=== PATIENT | female | born 1990 | race Caucasian/White ===

== ENCOUNTER 2018-03-19 23:20 | Outpatient (CLI) | payer BC, MEDICAID ==
[~2018-03-19] VITALS: Ht 160 cm; Wt 59.1 kg
[2018-03-19 23:46] VITALS: BP 118/77; PULSE 57; RESP 18; Ht 160 cm; Wt 59.1 kg
--- NOTE | 2018-03-20 08:08 | PN ---
Triage Information Date/Time March 19, 2018 Late entry note Reason for visit: DFM Weeks of Gestation 37 weeks and 2 days /Para 2 para 1 Diabetes: none Hypertention: none Additional information 28-year-old with IUP at 37 weeks and 2 days was sent from the clinic today for rule out PIH and due to decreased movement and for MICHAEL check. Patient apparently had a headache and blurred vision. Her symptoms resolved on admission. She was kept for monitoring and observation with serial blood pressure check, pH panel and for testing to rule out for PIH as well as for decreased movement. He denies leaking of fluid, vaginal bleeding, epigastric pain or right upper quadrant pain. Objective Vital Signs Date Temp Pulse Resp B/P (MAP) Pulse Ox O2 O2 Flow FiO2 Time Delivery Rate 03/19/18 98.4 57 18 118/77 Room Air 23:46 (91) Heart Rate: 130's Heart Rate Comments Category 1 and reassuring Contractions: None Exam Appearance: Alert and oriented x4 does not appear to be in any acute distress Abdomen: Soft, gravid, fundal height consider gestational age NST: Category 1 MICHAEL: Within normal limits Estimated weight: 42% are within normal limits Results/Medications Result Diagram: 03/20/18 0008 03/20/18 0008 Results 24 hrs Laboratory Tests Test 03/19/18 23:40 03/20/18 00:08 Urine Color YELLOW Urine Clarity SLIGHTLY CLOUDY A Urine pH 6.0 Urine Specific [place] 1.006 Urine Ketones NEGATIVE Urine Nitrite NEGATIVE Urine Bilirubin NEGATIVE Urine Urobilinogen NEGATIVE Urine Leukocyte Esterase 2+ H Urine Microscopic RBC 1 Urine Microscopic WBC 2 Urine Squamous Epithelial Cells FEW Urine Bacteria FEW A Urine Hemoglobin NEGATIVE Urine Glucose NEGATIVE Urine Total Protein NEGATIVE White Blood Count 5.5 Red Blood Count 3.98 L Hemoglobin 12.3 Hematocrit 36.6 L Mean Corpuscular Volume 92.0 Mean Corpuscular Hemoglobin 30.9 Mean Corpuscular Hemoglobin Concent 33.6 Red Cell Distribution Width 12.2 Platelet Count 168 Mean Platelet Volume 10.7 H Immature Granulocytes % 0.400 Neutrophils % 62.8 Lymphocytes % 28.8 Monocytes % 6.3 Eosinophils % 1.3 Basophils % 0.4 Nucleated Red Blood Cells % 0.0 Immature Granulocytes # 0.020 Neutrophils # 3.5 Lymphocytes # 1.6 Monocytes # 0.4 Eosinophils # 0.1 Basophils # 0.0 Nucleated Red Blood Cells # 0.0 Prothrombin Time 11.9 Prothrombin Time Ratio 0.9 INR International Normalized Ratio 0.87 Activated Partial Thromboplast Time 28.1 Fibrinogen 501.0 H Plasma Fibrin Degradation Products <10 Sodium Level 136 Potassium Level 3.5 Chloride Level 107 Carbon Dioxide Level 21 Anion Gap 8 Blood Urea Nitrogen 9 Creatinine 0.49 Est Glomerular Filtrat Rate mL/min > 60 Glucose Level 80 Uric Acid 5.3 Calcium Level 8.7 Total Bilirubin 0.1 L Direct Bilirubin 0.00 Indirect Bilirubin 0.1 Aspartate Amino Transf (AST/SGOT) 31 Alanine Aminotransferase (ALT/SGPT) 27 Alkaline Phosphatase 284 H Total Protein 6.2 Albumin 3.2 L Globulin 3.00 Albumin/Globulin Ratio 1.06 Imaging Results PROCEDURE: US OB CLINICAL INDICATION: Hypertension. Estimated weight. TECHNIQUE: Multiple transabdominal sonographic images of the pelvis and gravid uterus were obtained. The images were reviewed on a PACS workstation. COMPARISON: US PELVIS 03/19/2018 FINDINGS: Cervix: Not visualized Gestation: Single viable intrauterine gestation. Cardiac activity: 134 beats per minute. Presentation: Cephalic Placenta: Location: Posterior Appearance: No previa or abruption. Amniotic Fluid: Not evaluated (assessed with recent biophysical profile) Measurements: BPD = 9.04 cm, 36 weeks 4 days HC = 32.29 cm, 36 weeks 3 days AC = 43.13 cm, 37 weeks 0 days FL = 7.07 cm, 36 weeks 2 days Gestational Age: AUA estimated gestational age: 36 weeks 4 days LMP estimated gestational age: 37 weeks 2 days AUA estimated date of delivery: 04/13/2018 The EFW = 3016 g +/- 452 g (6 lb 10 oz +/- 1 lb 0 oz), 42.7 %ile based on Hadlock criteria. Structures: Not evaluated IMPRESSION: 1. Single viable intrauterine gestation of 36 weeks 4 days by ultrasound crite sonia. 2. Estimated date of delivery of 12/11/2018. 3. Estimated weight = 3016 g +/- 452 g (6 lb 10 oz +/- 1 lb 0 oz), 42.7 %ile based on Hadlock criteria. RPTAT: [facility] Physician Jon Date Time Electronically viewed and signed by Physician Jon on 03/20/2018 02:07 RF/ CC: GEORGE LOVE MD [id number] PROCEDURE: Biophysical profile. CLINICAL INDICATION: Pelvic pain. TECHNIQUE: Multiple sonographic images of the pelvis were obtained with transabdominal technique. COMPARISON: No prior studies are available for comparison. FINDINGS: There is a single living intrauterine gestation with the fetus in a vertex po sition. The placenta is posterior in location, grade II. heart tones of 130 beats per minute are identified. There is normal amniotic fluid volume with an MICHAEL of 14.3 cm. breathing movements = 2 Gross body movements = 2 tone = 2 Qualitative AFV = 2 IMPRESSION: Biophysical profile 8 out of 8. Disposition: Discharge Assessment/Plan IUP at 37 weeks and 2 days Decreased movement, testing reassuring Suspected PIH. Blood pressures during monitoring in triage and observation all within normal limits. Patient denied any symptoms. PIH panels are negative and within normal limits. Estimated weight normal, no evidence of oligohydramnios Patient was asymptomatic when arrived to the triage and during observation and monitoring. She was discharged home in stable condition with a strict labor precautions, kick count, preeclampsia precaution and follow-up within 24 hours with her OB office for nurse visit for monitoring and taking her blood pressure. Patient verbalized understanding. Signs and symptoms of PIH discussed with patient. All questions were answered to patient's best satisfaction. Patient verbalized understanding and agreed to comply with instruction. Risk of PIH and preeclampsia including but not limited to maternal morbidity and mortality discussed with patient. Patient verbalized understanding. GEORGE LOVE MD Mar 20, 2018 08:06
== END 2018-03-20 02:45 | disposition home or self-care (01) ==
LOC: OBT 23:20 → L-D 23:20 → OBT 03-20 02:45
PROVIDERS: ATTEND Specialist
DX: O36.8130 Decreased fetal movements, third trimester, not applicable or unspecified (principal); Z3A.37 37 weeks gestation of pregnancy
CPT/HCPCS: 76815; 76818; 80053; 81001; 84560; 85025; 85362; 85384; 85610; 85730; Z7500; G0463

== ENCOUNTER 2018-03-26 06:38 | Inpatient (IN) | payer MEDICAID ==
[~2018-03-26] VITALS: Ht 157.5 cm; Wt 58.3 kg
[2018-03-26] VITALS (10 sets, daily range): BP systolic 110–163; BP diastolic 67–97; PULSE 47–87; RESP 18–21; Ht 157.5 cm; Wt 58.3 kg
--- NOTE | 2018-03-26 07:13 | TRIAGE ---
OB Triage Datetime Report Generated by CPN: 03/26/2018 07:12 Datetime: 03/26/2018 06:55 Vaginal Exam Dilatation (cms): 1.0 Effacement (%): 90 Station: -2 Exam By: OBED Datetime: 03/26/2018 06:50 Assessment Type: Triage Time of Arrival: 03/26/2018 06:40 EGA: 38.1 Arrived By: Wheelchair Arrived From: Home Chief Complaint: SROM AT 0500 CONTRACTIONS SINCE 529 Movement: Present Contractions: Irregular Rupture of Membranes: Ruptured Vaginal Bleeding: None Vaginal Discharge: Present Recent Sexual Intercouse: Denies Patient Complaints: None Additional Patient Complaints: WANTS , CLINIC CONSENT ALREADY SIGNED Time Provider Notified: 03/26/2018 07:02 Provider Notified: DELSHAD Initial Plan: EFM, VE , NITRIZINE Maternal Assessment Level of Consciousness: Fully Conscious DTR's/Clonus: DTRs 2+; No Clonus Headache: Denies Blurred Vision: No Respiratory Effort: Unlabored; Regular Rhythm; Equal Expansion Breath Sounds, Left: Clear and Equal Breath Sounds, Right: Clear and Equal Nausea/Vomiting: Denies RUQ Epigastric Pain: Denies Lower Extremities Edema: None Upper Extremities Edema: None Facial Edema: None Fall Risk Assessment History of Falling: (0) No Secondary Diagnosis: (0) No Ambulatory Aid: (0) Bedrest/Nurse Assist IV Therapy: (0) No Gait: (0) Normal/Bedrest/Immobile Mental Status: (0) Oriented to Own Ability Fall Score: 0 Fall Risk Score Definition: No Risk: No action required Datetime: 03/20/2018 02:00 Stage of : OB Triage Labor Evaluation Frequency: OCCASIONAL Monitor Mode: External Duration (sec)2399: 50-90 Quality: Mild Resting Tone Mingo: Relaxed Contraction Comments: PT DENIES FEELING UC'S Heart Rate FHR Baseline Rate: 125 Monitor Mode: External US Variability: Moderate 6-25 bpm Accelerations: 15X15 Decelerations: None Pain Assessment Pain Scale: 0 Pain Presence: None/Denies Pain Type: N/A Pain Goal: 3 Datetime: 03/20/2018 01:00 Stage of : OB Triage Labor Evaluation Frequency: OCCASIONAL Monitor Mode: External Duration (sec)2399: 50-90 Quality: Mild Resting Tone Mingo: Relaxed Contraction Comments: PT DENIES FEELING UC'S Heart Rate FHR Baseline Rate: 125 Monitor Mode: External US Variability: Moderate 6-25 bpm Accelerations: 15X15 Decelerations: None Category: Category I Pain Assessment Pain Scale: 0 Pain Presence: None/Denies Pain Type: N/A Pain Goal: 3 Datetime: 03/20/2018 00:07 Stage of : OB Triage Assessment Type: Triage EGA: 37.1 Maternal Assessment Level of Consciousness: Fully Conscious DTR's/Clonus: DTRs 2+; No Clonus Headache: Denies Blurred Vision: No Respiratory Effort: Unlabored; Regular Rhythm; Equal Expansion Breath Sounds, Left: Clear and Equal Breath Sounds, Right: Clear and Equal Nausea/Vomiting: Denies RUQ Epigastric Pain: Denies Lower Extremities Edema: None Degree: None Upper Extremities Edema: None Degree: None Facial Edema: None Temperature Route: Oral Fall Risk Assessment History of Falling: (0) No Secondary Diagnosis: (0) No Ambulatory Aid: (0) Bedrest/Nurse Assist IV Therapy: (0) No Gait: (0) Normal/Bedrest/Immobile Mental Status: (0) Oriented to Own Ability Fall Score: 0 Fall Risk Score Definition: No Risk: No action required Pain Assessment Pain Scale: 0 Pain Presence: None/Denies Pain Type: N/A Datetime: 03/20/2018 00:05 Time of Arrival: 03/19/2018 23:14 Arrived By: Wheelchair Arrived From: Emergency Dept Chief Complaint: PT SENT FROM CLINIC STATING ELEVATED BP, LOW MICHAEL, AND DFM Movement: Present Contractions: Denies/Absent Rupture of Membranes: Denies Vaginal Bleeding: None Vaginal Discharge: Denies Recent Sexual Intercouse: Denies Abdominal Trauma: Not Applicable Patient Complaints: Other Initial Plan: EFM Datetime: 03/19/2018 23:40 Contraction Comments: TOCO APPLIED Comments: US APPLIED
[2018-03-26] MEDS ORDERED: METHYLERGONOVINE 0.2 MG INJ IM PRN ×2 (07:30→11:30)
[2018-03-26] MEDS ORDERED: MINERAL OIL LIGHT 10 ML VIAL TOP ONE (07:30)
[2018-03-26] MEDS ORDERED: LIDOCAINE 1% (MPF) 30 ML INJ INJ PRN (07:30)
[2018-03-26] MEDS ORDERED: OXYTOCIN 30 UNITS/LR 500 ML IV SCH ×3 (07:30→11:18)
[2018-03-26] MEDS ORDERED: MISOPROSTOL 200 MCG TAB PR PRN ×2 (07:30→11:30)
[2018-03-26] MEDS ORDERED: CARBOPROST 250 MCG INJ IM PRN ×2 (07:30→11:30)
[2018-03-26] MEDS ORDERED: BUTORPHANOL 2 MG INJ IV PRN (07:30)
[2018-03-26] MEDS ORDERED: OXYTOCIN 30 UNITS/LR 500 ML IV PRN ×2 (07:30→11:30)
[2018-03-26] MEDS: LACTATED RINGER'S 1,000 ML IV SCH ×3 (08:40→15:45)
[2018-03-26] MEDS ORDERED: CEFAZOLIN 2 GM/50 ML (PMX) 50 ML IVPB ONE ×2 (09:07→09:30)
--- NOTE | 2018-03-26 09:08 | PREAC ---
Date/Time of Note Date/Time of Note DATE: 03/26/18 TIME: 09:06 Anesthesia Eval and Record Evaluation Time Pre-Procedure Interview DATE: 03/26/18 TIME: 09:06 Age 28 Sex female NPO: 8 hrs Preoperative diagnosis in labor with nonreassuring heart rate Planned procedure Repeat C/S Past Medical History Past Medical History: None Surgery & Anesthesia Issues No known issue Meds Anticoagulation: No Beta Vitor within 24 hr: No Reason Beta Vitor not given: Pt. not on B-Vitor No Active Prescriptions or Reported Meds Current Medications Lactated Ringer's 1,000 ml @ 125 mls/hr Q8H IV Last administered on 03/26/18at 09:00; Admin Dose 125 MLS/HR; Start 03/26/18 at 07:03 Butorphanol Tartrate (Stadol) 2 mg Q2H PRN IV PAIN; Start 03/26/18 at 07:30 Lidocaine (Xylocaine 1% (Mpf)) 30 ml ONCE PRN INJ DELIVERY; Start 03/26/18 at 07:30 Oxytocin/Lactated Ringer's 500 ml @ 500 mls/hr ONCE POST IV ; Start 03/26/18 at 07:30 Oxytocin/Lactated Ringer's 500 ml @ 125 mls/hr POST IV ; Start 03/26/18 at 07:30 Oxytocin/Lactated Ringer's 500 ml @ 0 mls/hr ONCE PRN IV BLEEDING; Start 03/26/18 at 07:30 Methylergonovine Maleate (Methergine) 0.2 mg ONCE PRN IM BLEEDING; Start 03/26/18 at 07:30 Carboprost Tromethamine (Hemabate) 250 mcg ONCE PRN IM BLEEDING; Start 03/26/18 at 07:30 Misoprostol (Cytotec) 1,000 mcg ONCE PRN NM BLEEDING; Start 03/26/18 at 07:30 Cefazolin Sodium/ Dextrose 50 ml @ 100 mls/hr ONCE ONCE IVPB ; Start 03/26/18 at 09:30; Stop 03/26/18 at 09:59; Status UNV Meds reviewed: Yes Allergies Coded Allergies: No Known Drug Allergy (Verified Allergy, Unknown, 03/26/18) Allergies Reviewed: Yes Labs/Studies Labs Reviewed: Reviewed by anesthesiologist Result Diagram: 03/26/18 0750 Laboratory Tests 03/26/18 07:50 Blood Bank Test 03/26/18 07:50 Antibody Screen NEGATIVE Blood Type O POSITIVE Rh Immune Globulin Candidate NO test: Positive Pre-procedure Exam Last vitals Vital Signs Date Temp Pulse Resp B/P (MAP) Pulse Ox O2 O2 Flow FiO2 Time Delivery Rate 03/26/18 97.6 47 18 150/97 Room Air 06:53 (114) Airway: Adequate mouth opening Mallampati: Mallampati II Teeth: Normal Lung: Normal Heart: Normal ASA Physical Status ASA physical status: 2 Emergency: None Planned Anesthetic Neuraxial: Spinal Planned Pain Management Sub-arachniod narcotics Pre-operative Attestations Prior to commencing anesthesia and surgery, the patient was re-evaluated, there was verification of: *The patient's identity *The results of appropriate recent lab work and preoperative vital signs *The above evaluation not changing prior to induction *Anesthetic plan, risk benefits, alternative and complications discussed with patient/family; questions answered; patient/family understands, accepts and wishes to proceed. GRADY DELACRUZ MD Mar 26, 2018 09:08
[2018-03-26] MEDS ORDERED: morphine SULFATE/PF (10 MG/10 ML) INJ ONE (09:45)
[2018-03-26] MEDS ORDERED: OXYTOCIN 30 UNITS/LR 0 ML IV ONE (09:45)
[2018-03-26] MEDS ORDERED: ONDANSETRON 4 MG INJ ONE (09:45)
[2018-03-26] MEDS ORDERED: METOCLOPRAMIDE 10 MG INJ ONE (09:45)
[2018-03-26] MEDS ORDERED: OXYTOCIN 10 UNIT INJ ONE ×2 (09:46→10:32)
--- NOTE | 2018-03-26 09:52 | HP ---
Date/Time of Note Date/Time of Note DATE: 03/26/18 TIME: 09:39 OB - History Hx of Present Free Text/Dictation 28 years old with single intrauterine at 38 weeks and 1days presented to triage with complaint of leakage of fluid at 05:00 today. She has history of 1 delivery, would like to have trial of labor. She also would like to have permanent surgical sterilization. After admission initially she had category 1 heart rate. Currently heart rate is 135 bpm, minimal variability with variable decelerations. She states good movement. She denies nausea, vomiting, shortness of breath, chest pain, headache, visual changes, vaginal bleeding. Chief Complaint: Leakage of fluid at 05:00 today Estimated Due Date: Apr 08, 2018 : 2 Para: 1 Spontaneous : 0 Therapeutic : 0 Care: Good Care Ultrasounds: Normal mid trimester US Obstetrical Complications: None Medical Complications: None Past Family/Social History * Past Medical, Surgical, Family and Obstetric Histories reviewed from chart. Blood Type: O+ Rubella: immune RPR/VDRL: Negative GBS Status: Negative HBsAG: Negative OB Admission Exam Vital Signs Vital Signs Vital Signs Date Temp Pulse Resp B/P (MAP) Pulse Ox O2 O2 Flow FiO2 Time Delivery Rate 03/26/18 97.6 47 18 150/97 Room Air 06:53 (114) Physical Exam HEENT: WNL Heart: Rhythm Normal Lungs: Clear Abdomen: WNL Extremities: Normal Reflexes: Normal Cervical Dilatation: 1cm Effacement: 75% Station: -3 Membranes: Ruptured Amniotic Fluid: Clear Heart Rate: 140's Accelerations: Accelerations Present Decelerations: Variable Decelerations Varibility: Minimum Contractions on Admission: 6-10 Minutes Apart Intensity: Mild Last 72 hours Lab Results CBC & BMP 03/26/18 07:50 OB Assessment/Plan Other plan: 28 years old at 38 weeks and 1 day admitted for spontaneous rupture of membrane. She has history of 1 delivery,initially would like to have trial of labor. Nonreassuring heart rate discussed in detail with patient. She expressed understanding. All of her questions answered. She would like to have repeat delivery with permanent surgical sterilization. - FHR: No sign of metabolic acidosis- Category I - Continuous EFM, toco - CBC, blood type and screen - Please see the orders - O+/Rubella: Immune - GBS: negative The risk of delivery, bilateral tubal ligation/salpingectomies including but not limited to bleeding, infection, injury to other organs (bowel, bladder, ureter, vessels, nerves), injury to fetus, blood transfusion, blood transfusion related infection, risk of anesthesia, adhesion, needs for future , removal of uterus or any other indicated surgery, permanent surgical sterilization, failure rate of procedure, increased risk of ectopic pr egnancy if failure of procedure occurs was discussed with the patient and her family. She expressed understanding. All of her questions were answered. She signed the informed consent. PHYSICIAN'S VERIFICATION OF INFORMED CONSENT The patient was counseled regarding the procedure, its indications, risks, potential complications and alternatives and any questions were answered. Consent was obtained. PLANNED PROCEDURE/TREATMENT: delivery with possible using vacuum/forceps, bilateral tubal ligation/bilateral salpingectomy and any other indicated surgery PHYSICIAN'S VERIFICATION OF INFORMED CONSENT FOR BLOOD TRANSFUSION: There is a reasonable possibility that blood transfusion will be necessary as a result of the patient's procedure. I have discussed the following with the osorio ent/patient's legal front office representative: An explanation of the benefits and risks of the transfusion of blood or blood products and the possible alternatives. All questions have been answered to the patient's satisfaction. INFORMED CONSENT:The patient has been informed of: The nature of the proposed care, treatment, services, medications, interventions or procedures. Potential benefits, risks or side effects, including potential problems related to recuperation. The likelihood of achieving care treatment and service goals. Reasonable alternatives to the proposed care, treatment and service. The relevant risks, benefits and side effects related to alternatives, including the possible results of not receiving care, treatment and services. When indicated, any limitations on the confidentiality of information learned from or about the patient. If appropriate, the risks, benefits and alternatives of the drugs to be used for sedation/analgesia including moderate sedation. If appropriate, patient has been provided information on the risks, benefits and alternatives to the transfusion of blood and/or blood products. If appropriate, patient has been provided information regarding the [employer] Act. ROSAMARIA LYNNE Mar 26, 2018 09:52
[2018-03-26] MEDS ORDERED: EPHEDrine 25 MG/5 ML SYG ONE (10:32)
[2018-03-26] MEDS ORDERED: MIDAZOLAM 1 MG/ML 2 ML INJ ONE (10:34)
[2018-03-26] MEDS: DEXTROSE 5%-LR 1,000 ML IV SCH ×2 (11:18→19:18)
[2018-03-26] MEDS ORDERED: METHYLERGONOVINE 0.2 MG TAB PO PRN (11:30)
[2018-03-26] MEDS ORDERED: EPHEDrine SULFATE 50 MG/5 ML SYG IV PRN (12:00)
[2018-03-26] MEDS ORDERED: morphine SULFATE/PF (10 MG/10 ML) INJ SPINAL ONE (12:00)
[2018-03-26] MEDS ORDERED: DIPHENHYDRAMINE 50 MG INJ IV PRN (12:00)
[2018-03-26] MEDS ORDERED: ONDANSETRON 4 MG INJ IV PRN (12:00)
[2018-03-26] MEDS ORDERED: NALOXONE (0.4 MG/ML) INJ IV PRN (12:00)
[2018-03-26] MEDS ORDERED: KETOROLAC 30 MG INJ IV PRN (12:00)
[2018-03-26] MEDS ORDERED: morphine 2 MG INJ IV PRN ×2 (12:00)
[2018-03-26] MEDS ORDERED: MAGNESIUM SULFATE 4 GM/100 ML 100 ML IV SCH (13:30)
[2018-03-26] MEDS: MAGNESIUM SULFATE 20 GM/500 ML 500 ML IV SCH ×2 (13:57→23:40)
[2018-03-26] MEDS: IBUPROFEN 800 MG TAB PO SCH ×2 (14:00→21:27)
--- NOTE | 2018-03-26 18:41 | NUR ---
EOSS: PT IS IN STABLE CONDITION, DENIES PAIN AND DISCOMFORT. IV INFUSING WELL, F/C DRAINING CLEAR YELLOW URIN . PT AND BONDING WITH THE BABY WELL.
--- NOTE | 2018-03-26 19:53 | OPR ---
Operative Report Planned Procedure Procedure date Mar 26, 2018 Procedure(s) 1. Repeat low transverse delivery 2. Bilateral tubal ligation Performed by see signature line Order Worker: GABY VIRGEN MD Anesthesiologist: GRADY DELACRUZ MD Pre-procedure diagnosis 28 years old with single intrauterine at 38 weeks and 1 days with previous delivery and nonreassuring heart rate desiring permanent surgical sterilization [id number] Anesthesia Type: [id number] spinal Post-Procedure Post-procedure diagnosis 28 years old with single intrauterine at 38 weeks and 1 days with previous delivery and nonreassuring heart rate desiring permanent surgical sterilization Findings 1. Normal uterus, fallopian tubes and ovaries 2. Viable male in face presentation. 9 at one minute and 9 in 5 minutes. Weight: 3075 g - 6 pound 12 ounces. Height 20.5 inches. Time of delivery: 10:21 3. Placenta with three vessel cord 4. Amniotic fluid -light meconium Estimated Blood Loss: 500 - 600 mls Specimen(s) Segment of left and right fallopian tube Grafts/Implant(s) none Complication(s) none Pt Condition post procedure: stable Disposition: PACU Procedure Description INDICATION AND HISTORY: A 28 years old with single intrauterine at 38 weeks and 1 days with previous delivery and nonreassuring heart rate. Please see H&P for detail. The risk of delivery and bilateral tubal ligation including but not limited to bleeding, infection, injury to other organs (bowel, bladder, ureter, vessels, nerves), injury to fetus, blood transfusion, blood transfusion related infection, risk of anesthesia, adhesion, needs for future , removal of uterus, permanent surgical sterilization, increased risk of ectopic if failure of procedure occurs or any other indicated surgery was discussed with the patient and her family. She expressed understanding. All of her questions were answered. She signed the informed co nsent. DESCRIPTION OF OPERATION: The patient was taken to the operating room, where she was identified and the procedure was verified. The patient received two gram of Ancef 30 minutes prior to surgery. Spinal anesthesia was placed. The patient placed in the dorsal supine position with a left tilt. The heart rate was 134 bpm. The patient was then prepped and draped in the normal sterile fashion. A Pfannenstiel skin incision was made and carried down to the fascia with knife. The fascia was incised in the midline and the fascial incision was carried laterally with knife. The superior portion of the fascial incision was then grasped with Sylvester clamps and tented up and dissected off the underlying rectus muscle with sharp dissection. The lower portion of the fascial incision was then made in a similar fashion. The rectus muscle was and the peritoneum was entered. The peritoneal incision was then stretched and a bladder blade was inserted. The utero-vesical peritoneal reflection was incised transversely and the bladder flap was reflected inferiorly. Then, an incision was made in the lower uterine segment in a transverse fashion with a knife and extended bluntly. The was delivered atraumatically in cephalic presentation with the above findings. The umbilical cord was clamped and cut. The neonatology resuscitation team was present and the baby was handed to them. A cord blood sample was obtained for further evaluation. The placenta and membrane, which appeared normal were Removed. The uterus was exteriorized and cleared of all clot and debris. The uterus was then closed in a two layer fashion with 0-Monocryl. At the time of closure, hemostasis was noted. Then the left fallopian tube was identified and was grasped using Maria Del Carmen clamp, segment of distal fallopian tube including fimbria was double ligated with O- plain, excised and sent to pathology. Same procedure repeated at the right side. Hemostasis of stump of both fallopian tube reassured. The gutters were irrigated. The peritoneum was reapproximated with 3-0 Vicryl. The muscle was reapproximated with 3-0 Vicryl. The fascia was approximated with 0-Vicryl in a running fashion. The subcutaneous tissue was re approximated with 3-0 vicryl. The skin was closed with 4-0 Monocryl. All instruments, sponges and needle counts were correct x3. The patient tolerated the procedure well. She trans ferred to the recovery room in stable condition. ROSAMARIA LYNNE Mar 26, 2018 19:51
[2018-03-26] MEDS: SENNA/DOCUSATE NA (8.6MG/50MG) TAB PO SCH (21:06)
--- NOTE | 2018-03-26 21:43 | PAC ---
Date/Time of Note Date/Time of Note DATE: 03/26/18 TIME: 21:42 Post-Anesthesia Notes Post-Anesthesia Note Last documented vital signs Vital Signs Date Temp Pulse Resp B/P (MAP) Pulse Ox O2 O2 Flow FiO2 Time Delivery Rate 03/26/18 72 20 124/83 Room Air 21:00 (97) 03/26/18 98.3 96 20:00 Activity: WNL Respiratory function: WNL Cardiovascular function: WNL Mental status: Baseline Pain reasonably controlled: Yes Hydration appropriate: Yes Nausea/Vomiting absent: Yes GRADY DELACRUZ MD Mar 26, 2018 21:43
[2018-03-27] VITALS (15 sets, daily range): BP systolic 101–131; BP diastolic 63–79; PULSE 60–79; RESP 16–21
[2018-03-27] MEDS: DEXTROSE 5%-LR 1,000 ML IV SCH (03:18)
[2018-03-27] MEDS: LACTATED RINGER'S 1,000 ML IV SCH (04:53)
--- NOTE | 2018-03-27 05:01 | NUR ---
EOSS: STABLE CONDITION. FABIOLA CARE DONE. LOCHIA MINIMAL. KIM CATHETER DRAINING TO AN ADEQUATE AMOUNT OF URINE. BONDING WELL WITH BABY. VITAL SIGNS MONITORED. IV MAGNESIUM IN PROGRESS. ASYMPTOMATIC.
[2018-03-27] MEDS: IBUPROFEN 800 MG TAB PO SCH ×3 (05:57→21:54)
[2018-03-27] MEDS: SENNA/DOCUSATE NA (8.6MG/50MG) TAB PO SCH ×2 (09:29→21:54)
[2018-03-27] MEDS: MAGNESIUM SULFATE 20 GM/500 ML 500 ML IV SCH (10:34)
[2018-03-27] MEDS ORDERED: DIPHTH/TET/ACEL PERTUSS (ADULT) 0.5 ML VIAL IM* ONE (11:00)
[2018-03-27] MEDS ORDERED: HYDROCODONE/APAP (5/325) TAB NGT PRN (11:00)
--- NOTE | 2018-03-27 12:45 | NUR ---
Fadumo/Ml KIM ORDERED, INSTRUCTED TO CALL FOR HELP WHEN READY TO AMBULATE. PT VERBALIZED UNDERSTANDING Addendum: 03/27/18 at 1252 by SEKOU BIRD RN Amended: Links added.
[2018-03-27] MEDS: HYDROCODONE/APAP (5/325) TAB PO PRN (12:47)
[2018-03-27] MEDS: LANOLIN HPA 1 PKT TOP PRN (12:47)
--- NOTE | 2018-03-27 12:54 | PN ---
Date/Time of Note Date/Time of Note DATE: 03/27/18 TIME: 12:51 OB Subjective Subjective Subjective Reports headache denies any blurred vision epigastric pain or right upper brayden drant pain.. Vaginal bleeding decreased. Has not been ambulated yet. Breast-feeding. Tolerated clear liquid diet. Has not passed flatus yet. Feels tired and exhausted since has not been able to sleep last night. Reports some sore throat had the symptoms of cold prior to . Denies any fever or chills. OB Objective Objective Objective Appearance: Alert and oriented x4 appears to be in mild to moderate distress Abdomen: Soft, appropriate tenderness in the incision no fundal tenderness. Extremities no calf tenderness, no click no edema, SCDs are on [place] draining clear yellow urine Lungs: Clear to auscultation bilaterally CV: RRR HEENT: No evidence of exudate OB Assessment/Plan Other Assessment: Status post Postop day #1 PIH, was on magnesium. No evidence of MAC toxicity Headache, likely spinal. Give the patient thousand milligrams of Tylenol will continue monitor closely If the headache resolved with staying in the back and with Tylenol may DC magnesium. Blood pressures well controlled Anticipate routine routine /postop care May DC magnesium after resolving of headache if she continued to does not have any other neurological symptoms discussed with patient regarding increased caffeine intake and take Tylenol after resolving of symptoms DC magnesium may start ambulation, Sore throat, exam benign. No evidence of exudate. Exam mild cold symptoms. GEORGE LOVE MD Mar 27, 2018 12:54
[2018-03-27] MEDS ORDERED: HYDROCODONE/APAP (5/325) TAB GTB SCH (14:00)
--- NOTE | 2018-03-27 17:31 | OPPN ---
Date/Time of Note Date/Time of Note DATE: 03/27/18 TIME: 17:26 Anesthesia Follow up Anesthesia Follow up Last documented vital signs Vital Signs Date Temp Pulse Resp B/P (MAP) Pulse Ox O2 O2 Flow FiO2 Time Delivery Rate 03/27/18 98.2 65 18 113/66 16:39 (82) 03/27/18 99 Room Air 11:58 Respiratory function: WNL Cardiovascular function: WNL Comments Postoperative pain is in good control with spinal duramorph with intermittent use of opioid supplement. No other specific complaints. Vital signs stable. GRADY DELACRUZ MD Mar 27, 2018 17:31
--- NOTE | 2018-03-27 18:40 | NUR ---
EOSS: Patient's vital signs stable. Voiding. Bonding well with baby. Ambulating without difficulty in room. No c/o at this time.
[2018-03-28] MEDS: HYDROCODONE/APAP (5/325) TAB PO PRN ×3 (00:27→23:47)
[2018-03-28 04:00] VITALS: BP 105/66; PULSE 59; RESP 17
[2018-03-28] MEDS: IBUPROFEN 800 MG TAB PO SCH ×3 (05:37→21:57)
--- NOTE | 2018-03-28 06:27 | NUR ---
EOSS Patient in stable condition, bonding well with baby, voiding without difficulty, pain controlled by the medication, fundus firm with scant amount of lochia, incision dry and clean with glue open to air, ambulating well, afebrile, pain controlled by the medication.
[2018-03-28 08:30] VITALS: BP 117/67; PULSE 56; RESP 18
[2018-03-28] MEDS: SENNA/DOCUSATE NA (8.6MG/50MG) TAB PO SCH ×2 (08:57→21:57)
[2018-03-28 15:51] VITALS: BP 116/89; PULSE 55; RESP 17
[2018-03-28] MEDS: LANOLIN HPA 1 PKT TOP PRN (15:56)
--- NOTE | 2018-03-28 16:34 | DS ---
Date/Time of Note Date/Time of Note DATE: 03/28/18 TIME: 16:32 Obstetrical Discharge Record Final Diagnosis Final Diagnosis: Term delivered Other Final Diagnosis postoperatively she had BM, tolerating regular diet, ambulating well and remained afebrile with stable vital signs. Vaginal Delivery Obstetrical Delivery: Bilateral Tubal Ligation Section Section: Repeat Complications Augmentation: No Induction: No Condition on Discharge Physical Assessment Voiding: Yes Bowel Movement: Yes Breast: Soft, non-tender, Filling Fundus: Firm Abdomen and Incision: soft, appropriate tenderness and incision is clean and no sign of infection Calf Tenderness: No Patient Condition: Good MARLEY KIM MD Mar 28, 2018 16:34
--- NOTE | 2018-03-28 18:49 | NUR ---
EOSS: Patient's vital signs stable. Requested earlier to go home when Dr. Singh was here and He gave her discharge order. But now she changed her mind and wants to go home till tomorrow. Call placed to Dr. Limon (Laborist) covering for Dr. Singh to see if we can get order for Patient to go home tomorrow.
[2018-03-28 19:40] VITALS: BP 122/71; PULSE 59; RESP 19
--- NOTE | 2018-03-28 22:17 | NUR ---
called & spoke to dr evans who is covering dr hilario mcgarry regarding patient discharge order. dr evans said the patient can stay tonight & go home tomorrow .
--- NOTE | 2018-03-29 04:51 | NUR ---
eoss stable vital signs. no respiratory distress . ambulating & voiding well . surgical incision intact clean & dry.bonding well with baby
[2018-03-29] MEDS: IBUPROFEN 800 MG TAB PO SCH (05:54)
[2018-03-29 08:30] VITALS: BP 109/71; PULSE 58; RESP 18
[2018-03-29] MEDS: HYDROCODONE/APAP (5/325) TAB PO PRN (08:45)
[2018-03-29] MEDS: SENNA/DOCUSATE NA (8.6MG/50MG) TAB PO SCH (09:00)
[2018-03-29] MEDS ORDERED: DIPHTH/TET/ACEL PERTUSS (ADULT) 0.5 ML VIAL IM* ONE (09:00)
[2018-03-29] MEDS ORDERED: MEASLES,MUMPS,RUBELLA VACCINE INJ SC* ONE (09:00)
--- NOTE | 2018-03-29 13:40 | NUR ---
DISCHARGE TEACHING COMPLETED FOR MOM AND BABY. RE ENFORCED TO MOM TO HAVE BABY SEEN IN THE [facility] IN 2-3 DAYS. ADDRESS AND TELE PHONE NUMBER PROVIDED. MOM VERBALIZED UNDERSTANDING OF ALL DISCHARGE TEACHING. ID BANDS WERE MATCHED AND CUT AT TIME OF DISCHARGE . CORD CLAMP AND SENSOR WERE REMOVED.MOM AND BABY WERE DISCHRGED HOME IN STABLE CONDITION WITH ALL PERSONAL BELONGINGS PER WHEELCHAIR
== END 2018-03-29 13:40 | disposition home or self-care (01) | DRG 785 ==
LOC: L-D 06:38 → OBT 06:38 → L-D 07:02 → OBT 07:11 → L-D 09:28 → PP1 15:11
PROVIDERS: ADMIT Specialist; ATTEND Specialist
PROC: 10D00Z1 Extraction of Products of Conception, Low, Open Approach (ICD-10-PCS; principal; 2018-03-28)
PROC: 0UL70ZZ Occlusion of Bilateral Fallopian Tubes, Open Approach (ICD-10-PCS; 2018-03-28)
DX: O76 Abnormality in fetal heart rate and rhythm complicating labor and delivery (principal); Z30.2 Encounter for sterilization; Z3A.38 38 weeks gestation of pregnancy; Z37.0 Single live birth
CPT/HCPCS: 80053; 81001; 83735; 84560; 85025; 85384; 85610; 85730; 86592; 86850; 86900; 86901; 87340; 88302; 99464; G0463; J0690; J1885; J2250; J2274; J2405; J2590; J2765; J3475; J7120; J7121